=== PATIENT | male | born 1950 | race Caucasian/White ===

== ENCOUNTER 2020-07-23 14:36 | Outpatient (REF) | payer MEDICARE, MEDICAID, SELFPAY ==
[2020-07-23 15:10] LABS: MANUAL DIFF FLAG NO
[2020-07-23 15:13] LABS: Basophils Percent Auto 0.3 % (0-2); Eosinophils Absolute Auto 0.1 X10*3/uL (0.0-0.4); Eosinophils Percent Auto 0.6 % (0-4); Hematocrit 48.8 % (42-52); Imm Gran Abs Auto 0.06 X10*3/uL (0.00-0.03); Imm Gran Pct Auto 0.6 % (0.0-0.4); Lymphocytes Absolute Auto 1.9 X10*3/uL (1.2-4.9); Lymphocytes Percent Auto 17.6 % (20-40); Mean Corpuscular HGB Conc 32.8 g/dl (31.0-36.0); Mean Corpuscular Hemoglobin 29.4 pg (27.0-33.0); Mean Corpuscular Volume 89.5 fL (80-98); Mean Platelet Volume 8.9 fL (9.4-12.4); Monocytes Absolute Auto 0.9 X10*3/uL (0.1-1.2); Monocytes Percent Auto 8.2 % (2-11); Neutrophils Absolute Auto 7.9 X10*3/uL (2.0-8.3); Neutrophils Percent Auto 72.7 % (45-73); Platelet Count 295 X10*3/uL (160-400); Red Blood Count 5.45 X10*6/uL (4.60-5.80); Red Cell Distribution Width 12.9 % (11.0-16.0); White Blood Count 10.9 X10*3/uL (4.8-10.8)
[2020-07-23 15:51] LABS: Alanine Aminotransferase 23 U/L (0-40); Albumin Level 4.6 g/dL (3.5-5.0); Alkaline Phosphatase 76 U/L (39-117); Anion Gap 12 (12-20); Aspartate Amino Transferase 23 U/L (5-37); Bilirubin Total 0.6 mg/dL (0.0-1.0); Blood Urea Nitrogen 18 mg/dL (9-16); Calcium 9.6 mg/dL (8.4-10.2); Carbon Dioxide 32 mmol/L (22-29); Chloride 99 mmol/L (96-108); Estimated Glomerular Filt Rate 59; Glucose Random 96 mg/dL (60-115); Potassium 4.6 mmol/l (3.3-5.1); Sodium 138 mmol/L (135-145); Total Protein 7.7 g/dL (6.5-8.0)
== END 2020-07-23 14:37 | disposition home or self-care (01) ==
LOC: HO.LAB 14:36
PROVIDERS: PCP Family Medicine; Visit Provider Family Medicine
DX: C67.9 Malignant neoplasm of bladder, unspecified (principal); R53.1 Weakness; K50.90 Crohn's disease, unspecified, without complications; M48.02 Spinal stenosis, cervical region; M47.12 Other spondylosis with myelopathy, cervical region; M50.30 Other cervical disc degeneration, unspecified cervical region; Z93.2 Ileostomy status; T81.89XD Other complications of procedures, not elsewhere classified, subsequent encounter; M54.5 Low back pain; G61.81 Chronic inflammatory demyelinating polyneuritis; G89.4 Chronic pain syndrome; Z79.891 Long term (current) use of opiate analgesic
CPT/HCPCS: 36415; 80053; 85025; 99202

== ENCOUNTER → 2020-07-31 10:02 | Outpatient (BNVA) | payer MEDICARE, MEDICAID, SELFPAY | PROVIDERS: PCP Family Medicine; Visit Provider Surgery | DX: K94.03 Colostomy malfunction (principal); Z87.19 Personal history of other diseases of the digestive system | CPT/HCPCS: 99202 ==

== ENCOUNTER 2020-08-24 13:14 | Outpatient (REF) | payer MEDICARE, MEDICAID, SELFPAY ==
--- NOTE | 2020-08-24 15:38 | MHC.AU.P13 ---
Adult Audiological Evaluation Date of Visit: 08/24/20 Reason for Appointment: History of bilateral hearing loss, slightly worse in the left ear. Patient arrives today to determine if he has had a change in hearing. Since his last audiological evaluation, patient has been treated for bladder cancer and is now in remission. A chemotherapy agent was administered directly into his bladder, rather than systemically. Previous Hearing Test Results: At this clinic on 07/04/2019- Normal/borderline sloping to severe sensorineural hearing loss bilaterally Ear History: Recent Ear Drainage: None Reported Recent Ear Pain: None Reported Previous Ear Surgery: None Reported Medical History: Medical History: Crohn's Disease, Bladder Cancer, Arthritis Hearing Instrument History- Right Ear: Immigration Officer: Strikeface Model: [employer] B50-R Serial Number: [id number] Battery Size: Rechargeable Repair Warranty: 09/17/2018 Loss and Damage Warranty: 09/17/2018 Dispensed By: [facility] Date of Fittin07/11/2016 Hearing Instrument History- Left Ear: Immigration Officer: Strikeface Model: DigibooeAnimoca B50-R Serial Number: [id number] Battery Size: Rechargeable Warranty: 09/17/2018 Loss and Damage Warranty: 09/17/2018 Dispensed By: [facility] Date of Fittin07/11/2016 Otoscopy: Right Ear: Unremarkable Left Ear: Partially occluded with cerumen Tympanometry: Right Ear: Normal Middle Ear System (Type A) Left Ear: Normal Middle Ear System (Type A) Hearing Evaluation: Transducer(s) Used: Insert Earphones Method: Conventional Audiometry Stimuli Used: Pure Tones Right Ear: Description of Hearing: Borderline-normal sloping to moderately-severe sensorineural hearing loss Left Ear: Description of Hearing: Borderline-normal sloping to moderately-severe/severe sensorineural hearing loss Speech Recognition Threshold (SRT): Method Used: Recorded Lists Stimuli Used: Spondee Words Right Ear: 30 dBHL Left Ear: 30 dBHL Word Discrimination: Method: Recorded Lists Word Lists Used: NU-6 Right Ear: 92% at 70 dBHL Left Ear: 100% at 75 dBHL Most Comfortable Level (MCL): Right Ear: 70 dBHL Left Ear: 75 dBHL Comparison: Compared to the most recent evaluation: Thresholds have decreased bilaterally. Recommendations: Audiological re-evaluation in one year. Hearing aid maintenance performed today. Hearing aid(s) reprogrammed with updated test results. Diagnosis: Primary Diagnosis: H90.3 Bilateral Sensorineural Hearing Loss Services Performed: Services Performed: Comprehensive Audiological Evaluation (CPT 70594), Tympanometry (CPT 02872) Signature: Provider: Layla Sky, MONICA-A
== END 2020-08-24 13:15 | disposition home or self-care (01) ==
LOC: HO.SH 13:14
PROVIDERS: Visit Provider Family Medicine
DX: H90.3 Sensorineural hearing loss, bilateral (principal)
CPT/HCPCS: 92557; 92567; 92593

== ENCOUNTER → 2020-08-28 11:30 | Outpatient (BNVA) | payer MEDICARE, MEDICAID, SELFPAY | PROVIDERS: PCP Family Medicine; Visit Provider Surgery | DX: K46.9 Unspecified abdominal hernia without obstruction or gangrene (principal) | CPT/HCPCS: 99212 ==

== ENCOUNTER → 2020-09-05 09:55 | Outpatient (BNVA) | payer MEDICARE, MEDICAID, SELFPAY | PROVIDERS: PCP Family Medicine; Visit Provider Nurse Practitioner Family | DX: M47.12 Other spondylosis with myelopathy, cervical region (principal); G89.4 Chronic pain syndrome; C67.9 Malignant neoplasm of bladder, unspecified; Z79.899 Other long term (current) drug therapy | CPT/HCPCS: 99212 ==

== ENCOUNTER → 2020-09-10 10:07 | Outpatient (BNVA) | payer MEDICARE, MEDICAID, SELFPAY | PROVIDERS: PCP Family Medicine; Visit Provider Surgery | DX: K94.19 Other complications of enterostomy (principal) | CPT/HCPCS: 99212 ==

== ENCOUNTER → 2020-10-03 10:58 | Outpatient (BNVA) | payer MEDICARE, MEDICAID, SELFPAY | PROVIDERS: PCP Family Medicine; Visit Provider Nurse Practitioner Family | DX: M47.12 Other spondylosis with myelopathy, cervical region (principal); G89.4 Chronic pain syndrome; C67.9 Malignant neoplasm of bladder, unspecified; Z79.899 Other long term (current) drug therapy | CPT/HCPCS: 99212 ==

== ENCOUNTER → 2020-11-02 10:24 | Outpatient (BNVA) | payer MEDICARE, MEDICAID, SELFPAY | PROVIDERS: PCP Family Medicine; Visit Provider Nurse Practitioner Family | DX: M47.12 Other spondylosis with myelopathy, cervical region (principal); G89.4 Chronic pain syndrome; C67.9 Malignant neoplasm of bladder, unspecified | CPT/HCPCS: 99212 ==

== ENCOUNTER 2020-11-05 09:57 | Outpatient (REF) | payer MEDICARE, MEDICAID, SELFPAY | END 2020-11-05 09:58 | disposition home or self-care (01) | LOC: HO.LAB 09:57 | PROVIDERS: PCP Family Medicine; Visit Provider Surgery | DX: L92.9 Granulomatous disorder of the skin and subcutaneous tissue, unspecified (principal); C67.9 Malignant neoplasm of bladder, unspecified; K50.90 Crohn's disease, unspecified, without complications; Z88.8 Allergy status to other drugs, medicaments and biological substances; Z93.2 Ileostomy status; Z96.643 Presence of artificial hip joint, bilateral; Z96.653 Presence of artificial knee joint, bilateral; Z79.52 Long term (current) use of systemic steroids; Z79.891 Long term (current) use of opiate analgesic; Z79.899 Other long term (current) drug therapy | CPT/HCPCS: 88304; 88312; 99212 ==

== ENCOUNTER → 2020-11-30 10:00 | Outpatient (BNVA) | payer MEDICARE, MEDICAID, SELFPAY | PROVIDERS: PCP Family Medicine; Visit Provider Nurse Practitioner Family | DX: G89.4 Chronic pain syndrome (principal); M47.12 Other spondylosis with myelopathy, cervical region; C67.9 Malignant neoplasm of bladder, unspecified; Z79.899 Other long term (current) drug therapy | CPT/HCPCS: 99212 ==

== ENCOUNTER 2020-12-04 15:12 | Outpatient (REF) | payer MEDICARE, MEDICAID, SELFPAY ==
--- NOTE | ~2020-12-04 | XR_ITS ---
EXAMINATION: XR SHOULDER, RIGHT CLINICAL INFORMATION: Pain COMPARISON: None TECHNIQUE: Three views of the right shoulder. FINDINGS: Bone alignment is normal. No fracture or dislocation is seen. There postsurgical changes with a surgical anchor projecting over the humeral head. There is arthritis at the glenohumeral and acromioclavicular joints with joint space narrowing and osteophyte formation. Soft tissues are unremarkable XR/XR shoulder RT min 2V IMPRESSION: Postsurgical change. Arthritis of the glenohumeral and acromioclavicular joints.
== END 2020-12-04 15:13 | disposition home or self-care (01) ==
LOC: HO.HOSX 15:12
PROVIDERS: Visit Provider Orthopaedic Surgery
DX: M25.511 Pain in right shoulder (principal)
CPT/HCPCS: 73030

== ENCOUNTER → 2020-12-05 08:35 | Outpatient (BNVA) | payer MEDICARE, MEDICAID, SELFPAY | PROVIDERS: Visit Provider Orthopaedic Surgery | DX: M25.511 Pain in right shoulder (principal) | CPT/HCPCS: 20610; 99212; J1040 ==

== ENCOUNTER → 2020-12-24 11:36 | Outpatient (BNVA) | payer MEDICARE, MEDICAID, SELFPAY | PROVIDERS: PCP Family Medicine; Visit Provider Anesthesiology | DX: M47.12 Other spondylosis with myelopathy, cervical region (principal); C67.9 Malignant neoplasm of bladder, unspecified; G89.4 Chronic pain syndrome | CPT/HCPCS: 99212 ==

== ENCOUNTER → 2021-01-02 10:26 | Outpatient (BNVA) | payer MEDICARE, MEDICAID, SELFPAY | PROVIDERS: PCP Family Medicine; Referring Provider Family Medicine; Visit Provider Surgery | DX: L92.9 Granulomatous disorder of the skin and subcutaneous tissue, unspecified (principal); T81.89XD Other complications of procedures, not elsewhere classified, subsequent encounter | CPT/HCPCS: 99212 ==

== ENCOUNTER 2021-01-10 10:00 | Outpatient (RCR) | payer MEDICARE, MEDICAID, SELFPAY | END 2021-08-19 09:17 | disposition home or self-care (01) | LOC: HO.PTWFD 10:00 | PROVIDERS: PCP Family Medicine; Visit Provider Anesthesiology | DX: G89.4 Chronic pain syndrome (principal) | CPT/HCPCS: 97110; 97112; 97150; 97162; 97164; 97530 ==

== ENCOUNTER → 2021-01-23 10:51 | Outpatient (BNVA) | payer MEDICARE, MEDICAID, SELFPAY | PROVIDERS: PCP Family Medicine; Visit Provider Anesthesiology | DX: M47.12 Other spondylosis with myelopathy, cervical region (principal); C67.9 Malignant neoplasm of bladder, unspecified; G89.4 Chronic pain syndrome | CPT/HCPCS: 99212 ==

== ENCOUNTER 2021-02-12 07:13 | Outpatient (REF) | payer MEDICARE, MEDICAID, SELFPAY ==
--- NOTE | 2021-02-12 07:29 | ECG_ITS ---
Test Reason : HTN PREOP Blood Pressure : / mmHG Vent. Rate : 082 BPM Atrial Rate : 082 BPM P-R Int : 146 ms QRS Dur : 096 ms QT Int : 352 ms P-R-T Axes : 066 070 051 degrees QTc Int : 411 ms Normal sinus rhythm Normal ECG When compared with ECG of 28-MAY-2017 11:36, No significant change was found Referred By: Hood Allison Electronically Signed By:Amrik Bennett
[2021-02-12 07:30] LABS: MANUAL DIFF FLAG NO
[2021-02-12 07:32] LABS: Basophils Absolute Auto 0.1 X10*3/uL (0.0-0.2); Basophils Percent Auto 0.6 % (0-2); Eosinophils Absolute Auto 0.3 X10*3/uL (0.0-0.4); Eosinophils Percent Auto 2.3 % (0-4); Hematocrit 49.2 % (42-52); Hemoglobin 16.2 g/dl (14.0-18.0); Imm Gran Pct Auto 0.9 % (0.0-0.4); Lymphocytes Absolute Auto 2.9 X10*3/uL (1.2-4.9); Lymphocytes Percent Auto 26.2 % (20-40); Mean Corpuscular HGB Conc 32.9 g/dl (31.0-36.0); Mean Corpuscular Hemoglobin 29.7 pg (27.0-33.0); Mean Corpuscular Volume 90.3 fL (80-98); Monocytes Absolute Auto 1.2 X10*3/uL (0.1-1.2); Monocytes Percent Auto 10.6 % (2-11); Neutrophils Absolute Auto 6.5 X10*3/uL (2.0-8.3); Neutrophils Percent Auto 59.4 % (45-73); Platelet Count 291 X10*3/uL (160-400); Red Blood Count 5.45 X10*6/uL (4.60-5.80); Red Cell Distribution Width 13.1 % (11.0-16.0); White Blood Count 10.9 X10*3/uL (4.8-10.8)
[2021-02-12 07:40] LABS: Estimated Average Glucose 108 mg/dL; Hemoglobin A1C 150.5761 umol/L; Hemoglobin A1c % 5.4 %
[2021-02-12 07:56] LABS: Alanine Aminotransferase 23 U/L (0-40); Albumin Level 4.4 g/dL (3.5-5.0); Alkaline Phosphatase 75 U/L (39-117); Anion Gap 13 (12-20); Aspartate Amino Transferase 22 U/L (5-37); Bilirubin Total 0.6 mg/dL (0.0-1.0); Blood Urea Nitrogen 13 mg/dL (9-16); Calcium 9.6 mg/dL (8.4-10.2); Carbon Dioxide 29 mmol/L (22-29); Chloride 103 mmol/L (96-108); Estimated Glomerular Filt Rate 56; Glucose Fasting 101 mg/dL (60-99); Potassium 4.5 mmol/L (3.3-5.1); Sodium 140 mmol/L (135-145); Total Protein 7.4 g/dL (6.5-8.0)
== END 2021-02-12 07:14 | disposition home or self-care (01) ==
LOC: HO.LAB 07:13
PROVIDERS: PCP Family Medicine; Visit Provider Family Medicine
DX: Z01.818 Encounter for other preprocedural examination (principal); K50.90 Crohn's disease, unspecified, without complications; I10 Essential (primary) hypertension
CPT/HCPCS: 36415; 80053; 83036; 85025; 93005

== ENCOUNTER → 2021-02-28 11:12 | Outpatient (BNVA) | payer MEDICARE, MEDICAID, SELFPAY | PROVIDERS: PCP Family Medicine; Visit Provider Anesthesiology | DX: G89.4 Chronic pain syndrome (principal); M47.12 Other spondylosis with myelopathy, cervical region; C67.9 Malignant neoplasm of bladder, unspecified; R39.15 Urgency of urination; K50.90 Crohn's disease, unspecified, without complications; Z92.21 Personal history of antineoplastic chemotherapy; Z43.2 Encounter for attention to ileostomy; Z88.8 Allergy status to other drugs, medicaments and biological substances | CPT/HCPCS: 99212 ==

== ENCOUNTER → 2021-03-28 10:13 | Outpatient (BNVA) | payer MEDICARE, MEDICAID, SELFPAY | PROVIDERS: PCP Family Medicine; Visit Provider Anesthesiology | DX: G89.4 Chronic pain syndrome (principal); M47.12 Other spondylosis with myelopathy, cervical region; C67.9 Malignant neoplasm of bladder, unspecified; Z79.899 Other long term (current) drug therapy | CPT/HCPCS: 99212 ==

== ENCOUNTER → 2021-04-24 10:00 | Outpatient (BNVA) | payer MEDICARE, MEDICAID, SELFPAY | PROVIDERS: Visit Provider Nurse Practitioner Family | DX: Z51.81 Encounter for therapeutic drug level monitoring (principal); M47.12 Other spondylosis with myelopathy, cervical region; C67.9 Malignant neoplasm of bladder, unspecified; G89.4 Chronic pain syndrome | CPT/HCPCS: 99212 ==

== ENCOUNTER 2021-05-22 10:11 | Outpatient (REF) | payer MEDICARE, MEDICAID, SELFPAY ==
[2021-05-22 11:27] LABS: MANUAL DIFF FLAG NO
[2021-05-22 11:50] LABS: Basophils Percent Auto 0.3 % (0-2); Eosinophils Absolute Auto 0.2 X10*3/uL (0.0-0.4); Eosinophils Percent Auto 1.9 % (0-4); Hematocrit 47.2 % (42-52); Hemoglobin 15.6 g/dl (14.0-18.0); Imm Gran Abs Auto 0.04 X10*3/uL (0.00-0.03); Imm Gran Pct Auto 0.5 % (0.0-0.4); Lymphocytes Absolute Auto 1.7 X10*3/uL (1.2-4.9); Lymphocytes Percent Auto 19.3 % (20-40); Mean Corpuscular HGB Conc 33.1 g/dl (31.0-36.0); Mean Corpuscular Hemoglobin 29.1 pg (27.0-33.0); Mean Corpuscular Volume 87.9 fL (80-98); Mean Platelet Volume 9.3 fL (9.4-12.4); Monocytes Percent Auto 11.4 % (2-11); Neutrophils Absolute Auto 5.9 X10*3/uL (2.0-8.3); Neutrophils Percent Auto 66.6 % (45-73); Platelet Count 283 X10*3/uL (160-400); Red Blood Count 5.37 X10*6/uL (4.60-5.80); Red Cell Distribution Width 13.1 % (11.0-16.0); White Blood Count 8.8 X10*3/uL (4.8-10.8)
== END 2021-05-22 10:12 | disposition home or self-care (01) ==
LOC: HO.LAB 10:11
PROVIDERS: Absent Provider Family Medicine; PCP Family Medicine; Visit Provider Anesthesiology
DX: G89.4 Chronic pain syndrome (principal); M47.12 Other spondylosis with myelopathy, cervical region; C67.9 Malignant neoplasm of bladder, unspecified; D64.9 Anemia, unspecified
CPT/HCPCS: 36415; 85025; 99212

== ENCOUNTER 2021-06-11 11:00 | Outpatient (RCR) | payer MEDICARE, MEDICAID, SELFPAY | END 2021-06-14 12:37 | disposition home or self-care (01) | LOC: HO.PTWFD 11:00 | PROVIDERS: PCP Family Medicine; Visit Provider Neurological Surgery | DX: M54.12 Radiculopathy, cervical region (principal) | CPT/HCPCS: 97014; 97110; 97140; 97162; 97535 ==

== ENCOUNTER 2021-06-13 11:18 | Outpatient (REF) | payer MEDICARE, MEDICAID, SELFPAY ==
[2021-06-13 16:55] LABS: Urine Cytology See Pathology rpt
== END 2021-06-13 11:19 | disposition home or self-care (01) ==
LOC: HO.LAB 11:18
PROVIDERS: PCP Family Medicine; Visit Provider Urology
DX: C67.9 Malignant neoplasm of bladder, unspecified (principal); E29.1 Testicular hypofunction; N40.0 Benign prostatic hyperplasia without lower urinary tract symptoms
CPT/HCPCS: 51798; 88112; 99212

== ENCOUNTER → 2021-06-17 10:15 | Outpatient (BNVA) | payer MEDICARE, MEDICAID, SELFPAY | PROVIDERS: PCP Family Medicine; Visit Provider Orthopaedic Surgery | DX: M19.011 Primary osteoarthritis, right shoulder (principal); M75.102 Unspecified rotator cuff tear or rupture of left shoulder, not specified as traumatic | CPT/HCPCS: 20610; 99212; J1100 ==

== ENCOUNTER → 2021-06-19 11:08 | Outpatient (BNVA) | payer MEDICARE, MEDICAID, SELFPAY | PROVIDERS: PCP Family Medicine; Visit Provider Anesthesiology | DX: G89.4 Chronic pain syndrome (principal); M47.12 Other spondylosis with myelopathy, cervical region; C67.9 Malignant neoplasm of bladder, unspecified; Z88.1 Allergy status to other antibiotic agents; Z88.8 Allergy status to other drugs, medicaments and biological substances; Z79.891 Long term (current) use of opiate analgesic; Z79.52 Long term (current) use of systemic steroids; Z79.899 Other long term (current) drug therapy | CPT/HCPCS: 99212 ==

== ENCOUNTER → 2021-07-17 15:07 | Outpatient (BNVA) | payer MEDICARE, MEDICAID, SELFPAY | PROVIDERS: PCP Family Medicine; Visit Provider Anesthesiology | DX: Z51.81 Encounter for therapeutic drug level monitoring (principal); F11.20 Opioid dependence, uncomplicated; M47.12 Other spondylosis with myelopathy, cervical region; G89.4 Chronic pain syndrome; C67.9 Malignant neoplasm of bladder, unspecified | CPT/HCPCS: 99212 ==

== ENCOUNTER 2021-08-21 16:07 | Outpatient (REF) | payer MEDICARE, MEDICAID, SELFPAY ==
[2021-08-21 17:07] LABS: MANUAL DIFF FLAG NO
[2021-08-21 17:27] LABS: Basophils Percent Auto 0.2 % (0-2); Eosinophils Absolute Auto 0.1 X10*3/uL (0.0-0.4); Eosinophils Percent Auto 1.5 % (0-4); Hemoglobin 15.5 g/dl (14.0-18.0); Imm Gran Abs Auto 0.02 X10*3/uL (0.00-0.03); Imm Gran Pct Auto 0.3 % (0.0-0.4); Lymphocytes Absolute Auto 1.5 X10*3/uL (1.2-4.9); Lymphocytes Percent Auto 25.4 % (20-40); Mean Corpuscular HGB Conc 32.3 g/dl (31.0-36.0); Mean Corpuscular Hemoglobin 28.2 pg (27.0-33.0); Mean Corpuscular Volume 87.4 fL (80.0-98.0); Mean Platelet Volume 9.5 fL (9.4-12.4); Monocytes Absolute Auto 0.7 X10*3/uL (0.1-1.2); Monocytes Percent Auto 11.4 % (2-11); Neutrophils Absolute Auto 3.6 x10*3/uL (2.0-8.3); Neutrophils Percent Auto 61.2 % (45-73); Platelet Count 233 X10*3/uL (160-400); Red Blood Count 5.49 X10*6/uL (4.60-5.80); Red Cell Distribution Width 13.1 % (11.0-16.0); White Blood Count 5.9 X10*3/uL (4.8-10.8)
[2021-08-21 17:54] LABS: C Reactive Protein 0.45 mg/dL (< or = 0.50)
[2021-08-21 18:08] LABS: Erythrocyte Sedimentation Rate 8 MM/HR (0-15)
[2021-08-21 18:16] LABS: Ferritin 169 ng/mL (20-250)
[2021-08-23 13:37] LABS: Beta-2 Microglobulin, Serum 4.16 mg/L (< OR = 2.51)
== END 2021-08-21 16:08 | disposition home or self-care (01) ==
LOC: HO.LAB 16:07
PROVIDERS: Absent Provider Family Medicine; PCP Family Medicine; Visit Provider Anesthesiology
DX: R53.83 Other fatigue (principal); G89.4 Chronic pain syndrome; M47.12 Other spondylosis with myelopathy, cervical region; C67.9 Malignant neoplasm of bladder, unspecified; D58.2 Other hemoglobinopathies; D84.9 Immunodeficiency, unspecified
CPT/HCPCS: 36415; 81219; 81270; 81279; 81339; 82232; 82728; 85025; 85652; 86140; 88184; 88185; 99212

== ENCOUNTER 2021-08-29 13:40 | Outpatient (REF) | payer MEDICARE, MEDICAID, SELFPAY ==
--- NOTE | 2021-08-30 08:34 | MHC.AU.MED ---
Medical Clearance for Hearing Instrumentation Date: 08/30/21 Patient Name: Landon Bourgeois Date of : 1950 Referring Provider: Hood Allison MD We have seen your patient on 08/29/21 and have determined that they are a candidate for amplification (See accompanying report). Specifically, they would benefit from: Hearing aid use in both ears There is a statute that addresses Medical Evaluation Requirements prior to fitting a patient with a hearing aid. According to [place] statute [facility] CMR:6.03(1), (a) General. Except as provided in 265 CMR 6.03(1)(b), a shearing machine tender shall not sell a hearing aid unless the prospective user has presented to the shearing machine tender a written statement signed by a licensed physician that states that the patient's hearing loss has been medically evaluated and the patient may be considered a candidate for a hearing aid. The medical evaluation must have taken place within the preceding six months. Please note: Due to the [place] Statute referenced above, we cannot accept a signature other than that of a licensed physician. MACHINE BUILDER and PA signatures cannot be accepted. I am in agreement with the above recommendation. There is no medical contraindication for hearing instrumentation. Physician Signature Date Physician Name (Printed)
--- NOTE | 2021-08-30 08:35 | MHC.AU.HAS ---
Hearing Aid Evaluation Date of Visit: 08/29/21 Historical Information: Description of Hearing: Borderline/mild sloping to moderately-severe sensorineural hearing loss bilaterally Current personal amplification information, if applicable: Pair of Phonak Audeo B50-R, obtained on07/11/2016 Summary: Patient was seen for audiological evaluation (see separate report for details). Hearing aid options were discussed. When shown the different styles, patient was briefly considering a custom for ease of use and to free up space behind his ears, as he also wears glasses. He ultimately decided it would be best to stick with what has worked well for him in the past, a HAMLET with custom molds. Hearing Aid Prescription: Based on the individual?s shared listening needs, communication environments, dexterity, desire for connectivity, and personal preferences, the following prescription for amplification has been made: Right ear: Director Translation: [employer] Model: Audeo B50-R Battery Size: Rechargeable Color: Sand Beige Motel Clerk: 2M Type of Mold: Microsonic Canal Molds in Idagf-a-Sway InvisiEar Left ear: Left ear prescription to be same as Right Hearing Aid above: Director Translation: Phonak Model: Audeo B50-R Battery Size: Rechargeable Color: Sand Beige Motel Clerk: 2M Type of Mold: Microsonic Canal Molds in Lznck-d-Fcjh InvisiEar Action Taken/Action Needed: Earmold Impressions Taken Medical Clearance to be requested from PCP/ENT Hearing Instrument Fitting to be scheduled when materials arrive Primary Diagnosis: H90.3 Bilateral Sensorineural Hearing Loss Signature: Provider: Layla Sky, MONICA-A
--- NOTE | 2021-08-30 08:35 | MHC.AU.AHA ---
Adult Audiological Evaluation Date of Visit: 08/29/21 Reason for Appointment: History of hearing loss. Patient arrives to determine if there has been a change in hearing. Previous Hearing Test Results: At this clinic on08/24/2020- Borderline sloping to moderately-severe sensorineural hearing loss bilaterally Ear History: Recent Ear Drainage: None Reported Recent Ear Pain: None Reported Recent Ear Infections: None Reported History of Ear Wax Buildup: Both Ears Previous Ear Surgery: None Reported Medical History: Medical History: Crohn's Disease, Bladder Cancer (treated with chemotherapy administered directly into the bladder, not systemically), Arthritis Hearing Instrument History- Right Ear: Flight Technician: [employer] Model: [employer] B50-R Serial Number: [id number] Battery Size: Rechargeable Repair Warranty: 09/17/2018 Loss and Damage Warranty: 09/17/2018 Dispensed By: [facility] Date of Fittin07/11/2016 Hearing Instrument History- Left Ear: Flight Technician: [employer] Market Model: [employer] B50-R Serial Number: [id number] Battery Size: Rechargeable Warranty: 09/17/2018 Loss and Damage Warranty: 09/17/2018 Dispensed By: [facility] Date of Fittin07/11/2016 Otoscopy: Right Ear: Partially occluded- Cerumen was removed prior to testing Left Ear: Partially occluded- Cerumen was removed prior to testing Hearing Evaluation: Transducer(s) Used: Insert Earphones Method: Conventional Audiometry Stimuli Used: Pure Tones Right Ear: Description of Hearing: Borderline sloping to moderately-severe sensorineural hearing loss Left Ear: Description of Hearing: Borderline/mild sloping to moderately-severe sensorineural hearing loss Speech Recognition Threshold (SRT): Method Used: Recorded Lists Stimuli Used: Spondee Words Right Ear: 20 dBHL Left Ear: 30 dBHL Word Discrimination: Method: Recorded Lists Word Lists Used: W-22 Right Ear: 100% at 70 dBHL Left Ear: 96% at 75 dBHL Most Comfortable Level (MCL): Right Ear: 70 dBHL Left Ear: 75 dBHL Comparison: Compared to most recent evaluation: Slight decrease noted in high frequencies of left ear Recommendations: Audiological re-evaluation in one year. See Hearing Aid Evaluation report for more information. Diagnosis: Primary Diagnosis: H90.3 Bilateral Sensorineural Hearing Loss Services Performed: Comprehensive Audiological Evaluation (CPT 04925) Signature: Provider: Layla Sky, CCC-A
--- NOTE | 2021-09-02 08:26 | MHC.AU.HAS ---
Hearing Aid Evaluation Date of Visit: 08/29/21 Historical Information: Description of Hearing: Borderline/mild sloping to moderately-severe sensorineural hearing loss bilaterally Current personal amplification information, if applicable: Pair of Phonak Audeo B50-R, obtained on07/11/2016 Summary: Patient was seen for audiological evaluation (see separate report for details). Hearing aid options were discussed. When shown the different styles, patient was briefly considering a custom for ease of use and to free up space behind his ears, as he also wears glasses. He ultimately decided it would be best to stick with what has worked well for him in the past, a HAMLET with custom molds. Hearing Aid Prescription: Based on the individual?s shared listening needs, communication environments, dexterity, desire for connectivity, and personal preferences, the following prescription for amplification has been made: Right ear: Glass Embosser: PhonGazelle Model: Audeo P70-R Battery Size: Rechargeable Color: Sand Beige Clam Dredger: 1M Type of Mold: SlimTip Silicone w/canal lock Left ear: Glass Embosser: Phonak Model: Audeo P70-R Battery Size: Rechargeable Color: Sand Beige Clam Dredger: 1M Type of Mold: SlimTip Silicone w/canal lock Action Taken/Action Needed: Earmold Impressions Taken Medical Clearance to be requested from PCP/ENT Hearing Instrument Fitting to be scheduled when materials arrive Primary Diagnosis: H90.3 Bilateral Sensorineural Hearing Loss Signature: Provider: Layla Sky, MONICA-A
== END 2021-08-29 13:41 | disposition home or self-care (01) ==
LOC: HO.SH 13:40
PROVIDERS: Visit Provider Family Medicine
DX: Z46.1 Encounter for fitting and adjustment of hearing aid (principal); H90.3 Sensorineural hearing loss, bilateral
CPT/HCPCS: 92557; 92591; V5275

== ENCOUNTER 2021-09-09 10:24 | Outpatient (REF) | payer MEDICARE, MEDICAID, SELFPAY ==
--- NOTE | ~2021-09-09 | XR_ITS ---
EXAMINATION: XR SHOULDER, LEFT CLINICAL INFORMATION: Pain in left shoulder COMPARISON: None TECHNIQUE: There are 3 views of the left shoulder. FINDINGS: Acromioclavicular joint: Mild osteoarthritis with small marginal osteophytes and some calcification in the region of the capsule. Glenohumeral joint: Normal. Surrounding bone and soft tissues: Unremarkable. XR/XR shoulder LT min 2V IMPRESSION: Degenerative changes of the acromioclavicular joint.
== END 2021-09-09 10:25 | disposition home or self-care (01) ==
LOC: HO.HOSX 10:24
PROVIDERS: PCP Family Medicine; Visit Provider Orthopaedic Surgery
DX: M75.102 Unspecified rotator cuff tear or rupture of left shoulder, not specified as traumatic (principal); M19.011 Primary osteoarthritis, right shoulder
CPT/HCPCS: 20610; 73030; 99212; J1100

== ENCOUNTER 2021-09-18 10:28 | Outpatient (REF) | payer MEDICARE, MEDICAID, SELFPAY ==
[2021-09-18 16:13] LABS: C Reactive Protein 0.69 mg/dL (< or = 0.50)
[2021-09-18 16:35] LABS: Vitamin D 25-OH Total 28.3 ng/mL (>30)
[2021-09-18 16:51] LABS: Vitamin B12 685 pg/mL (200-900)
[2021-10-03 21:22] LABS: Adalimumab Drug Level 8.3 mcg/mL; Anti-Adalimumab Antibody <10 AU (<10)
== END 2021-09-18 10:29 | disposition home or self-care (01) ==
LOC: HO.LAB 10:28
PROVIDERS: Absent Provider Family Medicine; PCP Family Medicine; Referring Provider Internal Medicine Gastroenterology; Visit Provider Surgery
DX: K50.90 Crohn's disease, unspecified, without complications (principal); Z93.2 Ileostomy status; Z79.899 Other long term (current) drug therapy
CPT/HCPCS: 36415; 80145; 82306; 82607; 83520; 86140; 99211; 99212

== ENCOUNTER 2021-09-20 13:40 | Outpatient (REF) | payer MEDICARE, MEDICAID, SELFPAY ==
--- NOTE | 2021-10-02 12:40 | MHC.AU.HFA ---
Hearing Instrument Fitting- Adult- Binaural Date of Visit: 09/20/21 Hearing Instruments Dispensed: Right Ear: Gift Shop Manager: Phonak Model: Audeo P70-R Serial Number: [id number] Repair Warranty: 12/11/2024 Loss and Damage Warranty: 12/11/2024 Service Plan: 09/20/2022 Battery Size: Rechargeable Color: Sand Beige Quantitative Developer: 1M Type of Mold: SlimTip Silicone w/canal lock #[id number] Type of Wax Guard: CeruShield Left Ear: Gift Shop Manager: Phonak Model: Audeo P70-R Serial Number: [id number] Repair Warranty: 12/11/2024 Loss and Damage Warranty: 12/11/2024 Service Plan: 09/20/2022 Battery Size: Rechargeable Color: Sand Beige Quantitative Developer: 1M Type of Mold: SlimTip Silicone w/canal lock #[id number] Type of Wax Guard: CeruShield Summary of Fitting: Feedback banking manager run. Verifit performed and levels adjusted to better reach targets. Target gain set to 100%. Patient was pleased with the sound and comfort of the hearing aids. He reports they sound markedly better than his old ones. Hearing aid care and maintenance were discussed and practiced. Hearing aids were paired to his phone and murphy. Recommendations: Recommendations: Patient is an experienced hearing aid user. He will call for follow-up if needed. Diagnosis Code(s): Primary Diagnosis: H90.3 Bilateral Sensorineural Hearing Loss Signature: Provider: Layla Sky, MONICA-A
== END 2021-09-20 13:41 | disposition home or self-care (01) ==
LOC: HO.HAP 13:40
PROVIDERS: Visit Provider Family Medicine
DX: Z46.1 Encounter for fitting and adjustment of hearing aid (principal); H90.3 Sensorineural hearing loss, bilateral
CPT/HCPCS: V5011; V5020; V5160; V5261; V5264

== ENCOUNTER → 2021-10-16 15:17 | Outpatient (BNVA) | payer MEDICARE, MEDICAID, SELFPAY | PROVIDERS: PCP Family Medicine; Visit Provider Anesthesiology | DX: Z51.81 Encounter for therapeutic drug level monitoring (principal); Z88.8 Allergy status to other drugs, medicaments and biological substances; Z79.899 Other long term (current) drug therapy | CPT/HCPCS: 99211 ==

== ENCOUNTER 2021-10-17 11:08 | Outpatient (REF) | payer MEDICARE, MEDICAID, SELFPAY ==
--- NOTE | 2021-10-17 14:20 | MHC.AU.HFU ---
Hearing Instrument Follow-Up- Binaural Date of Visit: 10/17/21 Right Ear: Railroad Crane Operator: Phonak Model: Audeo P70-R Serial Number: [id number] Repair Warranty: 12/11/2024 Loss and Damage Warranty: 12/11/2024 Service Plan: 09/20/2022 Battery Size: Rechargeable Color: Sand Beige Deckhand: 2M Type of Mold: SlimTip Silicone w/canal lock #[id number] Dispensed By: [facility] Date of Fittin07/11/2016 Left Ear: Railroad Crane Operator: Phonak Model: Audeo P70-R Serial Number: [id number] Repair Warranty: 12/11/2024 Loss and Damage Warranty: 12/11/2024 Service Plan: 09/20/2022 Battery Size: Rechargeable Color: Sand Beige Deckhand: 2M Type of Mold: SlimTip Silicone w/canal lock #[id number] Dispensed By: [facility] Date of Fittin07/11/2016 Follow-Up Summary: Patient arrived for follow-up. He would like to try ITCs. He reports that the new hearing aids have been sounding good, but they are difficult for him to put in his ears due to numbness in his fingers. He also thinks the assembler wire group wire needs to be a little longer. Impressions were taken bilaterally without incident. A pair of [email or web address] AI 1600 ITC R will be ordered. Patient will hold onto the Phonak RICs for now- the assembler wire group wire was changed to a size 2M in the meantime, which patient reported felt more comfortable. Recommendations: Patient will be contacted when materials have arrived. Diagnosis Code(s): Primary Diagnosis: H90.3 Bilateral Sensorineural Hearing Loss Signature: Provider: Layla Sky, [facility]
== END 2021-10-17 11:09 | disposition home or self-care (01) ==
LOC: HO.HAP 11:08
PROVIDERS: Visit Provider Family Medicine
DX: Z46.1 Encounter for fitting and adjustment of hearing aid (principal); H90.3 Sensorineural hearing loss, bilateral
CPT/HCPCS: V5275

== ENCOUNTER 2021-11-01 11:00 | Outpatient (REF) | payer MEDICARE, MEDICAID, SELFPAY ==
--- NOTE | 2021-11-01 12:11 | MHC.AU.HFA ---
Hearing Instrument Fitting- Adult- Binaural Date of Visit: 11/01/21 Hearing Instruments Dispensed: Right Ear: Laboratory Chemical Assistant: Coolerado Model: [employer]v AI 1600 ITC-R Serial Number: [id number] Repair Warranty: 11/23/2024 Loss and Damage Warranty: 11/23/2024 Battery Size: Rechargeable Type of Wax Guard: HearClear Left Ear: Laboratory Chemical Assistant: Coolerado Model: Evolv AI 1600 ITC-R Serial Number: [id number] Repair Warranty: 11/23/2024 Loss and Damage Warranty: 11/23/2024 Battery Size: Rechargeable Type of Wax Guard: HearClear Summary of Fitting: Fit the Coolerado ITC-R aids, ran feedback test and performed Real Ear measurements making adjust to better meet targets with aids set at Experience level #3. Activated Frequency Lowering and all features on default. Patient was having trouble using the push button so did not activate volume control. Downloaded [employer] murphy in patient's phone and tried to practice answering phone call, but did not work. Contacted [facility] and spoke with Dilma. Patient's Hydrelis 8 phone is not compatible with aids. Patient decided to delete the murphy. Recommendations: Hearing instrument care and maintenance were discussed and practiced.See handouts for care/use instructions and battery information. Recommendations (Other): Hearing aid follow-up schedule for 11/15/2021. PHONAK AIDS IN REPAIR DRAWER. PATIENT WILL DECIDE WHICH AIDS HE WANTS TO KEEP. Diagnosis Code(s): Primary Diagnosis: H90.3 Bilateral Sensorineural Hearing Loss Signature:Provider: Layla Mooney, [facility]-A
== END 2021-11-01 11:01 | disposition home or self-care (01) ==
LOC: HO.HAP 11:00
PROVIDERS: Visit Provider Family Medicine
DX: Z13.89 Encounter for screening for other disorder (principal)

== ENCOUNTER 2021-11-02 12:35 | Emergency (ER) | payer MEDICARE, MEDICAID, SELFPAY ==
[2021-11-02 12:46] VITALS: BP 114/74; PULSE 89; RESP 20; TEMP 36.4; O2SAT 97; BMI 27.1
--- NOTE | 2021-11-02 13:05 | ED.GENADULT ---
HPI - General Adult General Chief complaint: General Medical Stated complaint: med refill Time Seen by Provider: 11/02/21 12:41 Source: patient Mode of arrival: ambulatory Limitations: no limitations History of Present Illness HPI narrative: 71-year-old male with a history of bladder cancer, chronic pain syndrome on long-term oxycodone 15 mg q.4 hours followed by Pain Management Dr. Raymond here with reports of seeking medication refill. Patient tells me that he is on oxycodone 15 mg q.4 hours and fills his supply monthly at pain management. Last filled 3/3 150mg tablets. Patient tells me due to it being the weekend he was unable to reach out to his pain management doctor for his monthly refill. He will be unable to contact them until Thursday. He is requesting today and tomorrow his dosage to hold him over until Thursday when he can call his pain management doctor. Related Data Home Medications Medication Instructions Recorded Confirmed diphenoxylate-atropine 2.5 2 tab PO TID PRN 07/23/20 10/16/21 mg-0.025 mg tablet gabapentin 600 mg tablet 600 mg PO BEDTIME 07/23/20 10/16/21 chlorzoxazone 500 mg tablet 500 mg PO QID PRN 07/31/20 10/16/21 clonidine HCl 0.2 mg tablet 0.2 mg PO BID 07/31/20 10/16/21 lorazepam 0.5 mg tablet 0.5 mg PO BID PRN 07/31/20 10/16/21 metoprolol succinate 25 mg 25 mg PO BEDTIME 07/31/20 10/16/21 tablet,extended release 24 hr adalimumab 40 mg/0.8 mL See Rx Instructions SUBCUT .COMPLEX 09/05/20 10/16/21 subcutaneous syringe kit (Humira) adalimumab 40 mg/0.4 mL 40 mg SUBCUT Q2W 06/13/21 10/16/21 subcutaneous pen kit (Humira(CF) Pen) prednisone 1 mg tablet 1 mg PO BID 06/13/21 10/16/21 bupropion HCl 150 mg 24 hr tablet, 300 mg PO tab 09/18/21 10/16/21 extended release Previous Rx's Medication Instructions Recorded ostomy supplies #60 g 08/02/20 disposable gloves (Nitrile Exam #4 box 08/09/20 Gloves) ostomy adhesive (Stomahesive Paste) 1 appl MISCELLANEOUS Q OTHER DAY 08/09/20 #1 tube naloxone 4 mg/actuation nasal 4 mg INTRANASAL Q2M #2 ea 10/03/20 spray (Narcan) ring (ostomy supply) 2 #20 ring 12/10/20 disposable gloves #200 ea 12/11/20 ostomy supplies #473 ml 12/11/20 skin protectants, misc. (No Sting See Rx Instructions TOPICAL .w12/11/20 Barrier Film) appliance change #30 ea ostomy supplies (SenSura Flex #30 ea 12/18/20 Ostomy Pouch) ostomy supplies-skin barrier 4 X #20 wafer 12/18/20 4 wafer cyclobenzaprine 5 mg tablet 5 mg PO TID 30 Days #90 tab 08/07/21 testosterone 1 % (50 mg/5 gram) 2 packet TRANSDERMAL DAILY 30 Days 09/12/21 transdermal gel packet #300 g oxycodone 15 mg tablet 15 mg PO Q4H PRN 30 Days #150 tab 10/17/21 MDD 5 pills oxycodone 15 mg tablet 15 mg PO Q4H PRN #8 tab 11/02/21 Allergies Allergy/AdvReac Type Severity Reaction Status Date / Time methotrexate [METHOTREXATE] Allergy Severe ACUTE Verified 10/16/21 16:11 PANCREATITIS ciprofloxacin [Cipro] Allergy Unknown itching Verified 10/16/21 16:11 infliximab [From REMICADE] AdvReac Severe MALAISE,DIZ Verified 10/16/21 16:11 ZY,NAUSEA levofloxacin [From LEVAQUIN] AdvReac Severe PAINS IN Verified 10/16/21 16:11 SIDES OF ABDOMEN thalidomide [THALIDOMIDE] AdvReac Severe MALAISE Verified 10/16/21 16:11 DIZZY,NAUSEA From FLAGYL AdvReac Severe MALAISE,DIZ Uncoded 10/16/21 16:11 ZY,NAUSEA SALICYLATES AdvReac Severe MALAISE,DIZ Uncoded 10/16/21 16:11 ZY,NAUSEOUS Review of Systems Review of Systems: Yes all other systems are reviewed and are negative Constitutional: Constitutional: Reports no additional constitutional complaints, Denies body ache(s), Denies chills, Denies fever(s), Denies headache(s) and Denies weakness Eyes: Eyes: Reports no additional eye complaints and Denies change in vision ENT: Reports system reviewed and no additional complaints, except as documented, Denies dizziness, Denies headache(s), Denies nasal congestion, Denies nasal discharge and Denies neck pain Cardiovascular: Cardiovascular: Reports no additional cardiovascular complaints, Denies chest pain, Denies leg edema and Denies dyspnea Respiratory: Respiratory: Reports no additional respiratory complaints, Denies cough and Denies dyspnea Gastrointestinal: Gastrointestinal: Reports no additional gastrointestinal complaints, Denies abdominal pain, Denies diarrhea, Denies nausea and Denies vomiting Genitourinary: Genitourinary: Denies urinary incontinence Musculoskeletal: Musculoskeletal: Reports no additional musculoskeletal complaints, Denies back pain, Denies arthralgias, Denies joint swelling, Denies neck pain, Denies numbness and Denies tingling Integumentary/Breasts: Skin/Breast: Reports system reviewed and no additional complaints, except as docu and Denies rash Neurologic: Reports system reviewed and no additional complaints, except as documented, Denies dizziness, Denies headache(s), Denies numbness, Denies tingling and Denies weakness PMF Past Medical History Attestation statement: The following information was validated with the patient. Source: old records reviewed and nursing notes reviewed Medical History Bladder cancer Cervical stenosis of spinal canal Chronic pain syndrome Crohn's disease Crohn's disease Degeneration, intervertebral disc, cervical Hypergranulation Ileostomy in place residential (current) use of opiate analgesic Low back pain Peripheral neuropathy Spondylosis of cervical spine with myelopathy Surgical wound granuloma Surgical History History of appendectomy History of colostomy History of excision of mass (05/31/12) History of left hip replacement History of left knee replacement History of resection of stomach History of tonsillectomy and adenoidectomy History of total right hip arthroplasty (06/29/17) History of total right knee replacement Social History Social History Alcohol intake: current Alcohol intake frequency: holidays/special occasions only Advance Directives: Yes Advance Directives Information Provided: Yes Advance Directives on File: No Current occupation: right handed Physical Exam ED Vital Signs: Vital Signs - 24 hr 11/02/21 12:46 Temperature 97.6 F Pulse Rate 89 Respiratory Rate 20 Blood Pressure 114/74 Pulse Oximetry 97 BMI result Body Mass Index 27.1 Const General: cooperative, healthy appearing, comfortable and no acute distress Orientation/consciousness: patient oriented x3 Limitations: no limitations HENMT Head: Yes normal to inspection Ears: hearing grossly normal bilaterally General nose exam: Normal external nose present Face and sinus: Yes normal facial exam Eyes General: appearance normal, both eyes and all related structures Pupils: Equal, round and reactive pupils present Neck Neck: Yes normal visual inspection Chest Chest palpation & inspection: normal inspection of the chest Neuro General: patient oriented x3 Cranial nerves: Yes Equal, round and reactive pupils present Course Course Course Narrative: 71-year-old male here seeking medication refill for his oxycodone which he has been on long-term and is followed by pain management. Patient unable to get his refill as it is the weekend and pain management office is not open. His last refill was October 03 of 150 mg tablets of 15 mg of Oxycodone. I reviewed his [employer] APPRENTICE. Patient has been picking up his monthly prescription with pain management with no additional prescriptions from other providers. He has been going to pain management since 2019 and seems to have a good track record there. I reviewed his notes by pain management. Patient is requesting refill until Thursday when he can call pain management. I explained to the patient we normally do not refill or manage chronic pain in the emergency department. I did discuss with my attending Dr New and as the patient is in good standing with no notes of misuse/abuse or diversion from pain management notes we will give him 8 tablets for the weekend. Recommend patient follow-up with his pain management doctor on Thursday. Medical Decision Making Medical Records Medical records reviewed: Yes I reviewed the patient's medical records. Lab Data Lab results reviewed: Yes I reviewed the patient's lab results. Discharge Plan Discharge Clinical Impression: Medication refill Patient Disposition: Home, Self-Care Instructions: Medicine Refill (ED) Additional Instructions: We have given you a small supply until thursday morning Prescriptions: New oxycodone 15 mg tablet 15 mg PO Q4H PRN (Reason: pain) Qty: 8 0RF No Action Stomahesive Paste Paste 1 appl miscellaneous Q OTHER DAY Qty: 1 11RF Rx Instructions: Quanty 4 oz per month, refill x 11 (DME) disposable gloves [Nitrile Exam Gloves] Misc See Rx Instructions .ROUTE .MEDSUPPLY Qty: 4 11RF Rx Instructions: As directed (DME) ring (ostomy supply) 2 misc See Rx Instructions .ROUTE .MEDSUPPLY Qty: 20 3RF Rx Instructions: Merna 30mm ring No Sting Barrier Film Pads, Medicated See Rx Instructions topical .w/ appliance change Qty: 30 11RF Rx Instructions: 1 pad topical .w/ appliance change; (DME) ostomy supplies Liquid See Rx Instructions .ROUTE .MEDSUPPLY Qty: 473 0RF Rx Instructions: As directed (DME) disposable gloves Misc See Rx Instructions .ROUTE .MEDSUPPLY Qty: 200 11RF Rx Instructions: As directed during ostomy appliance change and cleanging (DME) SenSura Flex Ostomy Pouch Misc See Rx Instructions .ROUTE .MEDSUPPLY Qty: 30 11RF Rx Instructions: Ostomy pouch #[id number] (DME) ostomy supplies-skin barrier 4 X 4 wafer See Rx Instructions .ROUTE .MEDSUPPLY Qty: 20 11RF Rx Instructions: Ostomy wafer #[id number] cyclobenzaprine 5 mg tablet 5 mg PO TID 30 Days Qty: 90 8RF testosterone 1 % (50 mg/5 gram) gel in packet 2 packet transdermal DAILY 30 Days Qty: 300 5RF Rx Instructions: 2 applications topical every morning to both arms oxycodone 15 mg tablet 15 mg PO Q4H MDD 5 pills PRN (Reason: pain (scale score 7-10)) 30 Days Qty: 150 0RF diphenoxylate-atropine 2.5-0.025 mg tablet 2 tab PO TID PRN0RF gabapentin 600 mg tablet 600 mg PO BEDTIME 0RF clonidine HCl 0.2 mg tablet 0.2 mg PO BID 0RF lorazepam 0.5 mg tablet 0.5 mg PO BID PRN0RF chlorzoxazone 500 mg tablet 500 mg PO QID PRN0RF metoprolol succinate 25 mg tablet extended release 24 hr 25 mg PO BEDTIME 0RF (DME) ostomy supplies Paste See Rx Instructions .ROUTE .MEDSUPPLY Qty: 60 3RF Rx Instructions: Apply ostomy paste as directed to ostomy area bupropion HCl 150 mg tablet extended release 24 hr 300 mg PO 0RF Humira(CF) Pen 40 mg/0.4 mL pen injector kit 40 mg subcut Q2W 0RF prednisone 1 mg tablet 1 mg PO BID 0RF Humira 40 mg/0.8 mL syringe kit See Rx Instructions subcut .COMPLEX 0RF Rx Instructions: inject one - 40 mg/0.8 mL syringe every 2 weeks subcut Narcan 4 mg/actuation spray,non-aerosol 4 mg intranasal Q2M Qty: 2 0RF Rx Instructions: spray 1 dose into ONE nostril; alternate nostrils w each dose until help arrives Referrals: Bucky Raymond MD [Physician] - 2 days Interventions: ED Discharge Assessment Last Done: 11/02/21 13:07 Discharge Date/Time: 11/02/21 13:09
== END 2021-11-02 13:09 | disposition home or self-care (01) ==
PROVIDERS: Emergency Provider Emergency Medicine; PCP Family Medicine
DX: Z76.0 Encounter for issue of repeat prescription (principal); G89.4 Chronic pain syndrome; Z85.51 Personal history of malignant neoplasm of bladder; Z93.2 Ileostomy status; Z79.891 Long term (current) use of opiate analgesic
CPT/HCPCS: 99282; 99283

== ENCOUNTER → 2021-11-13 13:58 | Outpatient (BNVA) | payer MEDICARE, MEDICAID, SELFPAY | PROVIDERS: PCP Family Medicine; Visit Provider Anesthesiology | DX: Z51.81 Encounter for therapeutic drug level monitoring (principal); F11.20 Opioid dependence, uncomplicated; M47.12 Other spondylosis with myelopathy, cervical region; C67.9 Malignant neoplasm of bladder, unspecified; G89.4 Chronic pain syndrome | CPT/HCPCS: 99212 ==

== ENCOUNTER 2021-11-21 13:33 | Outpatient (REF) | payer MEDICARE, MEDICAID, SELFPAY ==
--- NOTE | 2021-11-21 13:41 | MHC.AU.HFU ---
Hearing Instrument Follow-Up- Binaural Date of Visit: 11/21/21 Right Ear: Research Anthropologist: Henry Model: Evolv AI 1600 ITC-R Serial Number: [id number] Repair Warranty: 11/23/2024 Left Ear: Research Anthropologist: Henry Model: Evolv AI 1600 ITC-R Serial Number: [id number] Repair Warranty: 11/23/2024 Follow-Up Summary: Patient reports that, overall, he has preferred the ITCs more than the RICs. He finds that both styles have excellent sound quality and he hears equally well from either one. He feels the ITCs are much easier to insert and manipulate than the RICs. His concern about the ITCs is that they have popped out on a few occasions and landed on the floor. He reports this has luckily only happened at home so far on the carpeted floor, but he is worried about losing them in public or having them break on a hard floor. He initially said he decided to return the ITCs and keep the RICs for peace of mind, so he does not have to worry about them falling out. After seeing how much he preferred the ITCs otherwise, discussed sending the ITCs back to [facility] to modify them and add a canal lock. Patient was given the RICs back for now. The ITCs were sent to [facility] for remake. Recommendations: Patient will be contacted when materials have arrived. Diagnosis Code(s): Primary Diagnosis: H90.3 Bilateral Sensorineural Hearing Loss Signature: Provider: Layla Sky, [facility]
== END 2021-11-21 13:34 | disposition home or self-care (01) ==
LOC: HO.HAP 13:33
PROVIDERS: Visit Provider Family Medicine
DX: Z13.89 Encounter for screening for other disorder (principal)

== ENCOUNTER → 2021-12-02 10:30 | Outpatient (BNVA) | payer MEDICARE, MEDICAID, SELFPAY | PROVIDERS: Visit Provider Orthopaedic Surgery | DX: M19.011 Primary osteoarthritis, right shoulder (principal); M75.102 Unspecified rotator cuff tear or rupture of left shoulder, not specified as traumatic | CPT/HCPCS: 20610; 99212 ==

== ENCOUNTER 2021-12-04 10:17 | Outpatient (REF) | payer MEDICARE, MEDICAID, SELFPAY | END 2021-12-04 10:18 | disposition home or self-care (01) | LOC: HO.HAP 10:17 | PROVIDERS: Visit Provider Family Medicine | DX: Z13.89 Encounter for screening for other disorder (principal) ==

== ENCOUNTER 2021-12-17 13:52 | Outpatient (REF) | payer MEDICARE, MEDICAID, SELFPAY ==
[2021-12-17 14:16] LABS: MANUAL DIFF FLAG NO
[2021-12-17 14:27] LABS: Basophils Percent Auto 0.3 % (0-2); Eosinophils Absolute Auto 0.1 X10*3/uL (0.0-0.4); Eosinophils Percent Auto 1.1 % (0-4); Hematocrit 43.7 % (42.0-52.0); Hemoglobin 14.6 g/dl (14.0-18.0); Imm Gran Abs Auto 0.02 X10*3/uL (0.00-0.03); Imm Gran Pct Auto 0.3 % (0.0-0.4); Lymphocytes Absolute Auto 1.7 X10*3/uL (1.2-4.9); Lymphocytes Percent Auto 21.7 % (20-40); Mean Corpuscular HGB Conc 33.4 g/dl (31.0-36.0); Mean Corpuscular Hemoglobin 28.5 pg (27.0-33.0); Mean Corpuscular Volume 85.2 fL (80.0-98.0); Mean Platelet Volume 9.1 fL (9.4-12.4); Monocytes Absolute Auto 0.9 X10*3/uL (0.1-1.2); Neutrophils Absolute Auto 5.2 x10*3/uL (2.0-8.3); Neutrophils Percent Auto 65.6 % (45-73); Platelet Count 278 X10*3/uL (160-400); Red Blood Count 5.13 X10*6/uL (4.60-5.80); Red Cell Distribution Width 13.2 % (11.0-16.0); White Blood Count 7.9 X10*3/uL (4.8-10.8)
[2021-12-17 14:28] LABS: Hematocrit 43.6 % (42.0-52.0); Hemoglobin 14.6 g/dl (14.0-18.0); Mean Corpuscular HGB Conc 33.5 g/dl (31.0-36.0); Mean Corpuscular Hemoglobin 28.7 pg (27.0-33.0); Mean Corpuscular Volume 85.8 fL (80.0-98.0); Platelet Count 268 X10*3/uL (160-400); Red Blood Count 5.08 X10*6/uL (4.60-5.80); Red Cell Distribution Width 13.2 % (11.0-16.0); White Blood Count 7.8 X10*3/uL (4.8-10.8)
[2021-12-17 15:06] LABS: Alanine Aminotransferase 25 U/L (0-40); Albumin Level 4.2 g/dL (3.5-5.0); Alkaline Phosphatase 102 U/L (39-117); Anion Gap 12 (12-20); Aspartate Amino Transferase 25 U/L (5-37); Bilirubin Total 0.8 mg/dL (0.0-1.0); Blood Urea Nitrogen 24 mg/dL (9-16); Calcium 9.7 mg/dL (8.4-10.2); Carbon Dioxide 27 mmol/L (22-29); Chloride 104 mmol/L (96-108); Estimated Glomerular Filt Rate 35; Glucose Random 99 mg/dL (60-115); Potassium 5.1 mmol/L (3.3-5.1); Sodium 138 mmol/L (135-145); Total Protein 7.6 g/dL (6.5-8.0)
[2021-12-17 15:25] LABS: Prostate Specific Antigen 2.04 ng/mL (<0.05-4.0)
[2021-12-21 15:31] LABS: Testosterone, Total 1039 ng/dL (250-1100)
== END 2021-12-17 13:53 | disposition home or self-care (01) ==
LOC: HO.LAB 13:52
PROVIDERS: Absent Provider Family Medicine; PCP Family Medicine; Visit Provider Urology
DX: Z12.5 Encounter for screening for malignant neoplasm of prostate (principal); E29.1 Testicular hypofunction; K50.90 Crohn's disease, unspecified, without complications; I10 Essential (primary) hypertension; G62.9 Polyneuropathy, unspecified
CPT/HCPCS: 36415; 80053; 84153; 84403; 85025; 85027

== ENCOUNTER 2021-12-18 11:32 | Outpatient (REF) | payer MEDICARE, MEDICAID, SELFPAY | END 2021-12-18 11:33 | disposition home or self-care (01) | LOC: HO.HAP 11:32 | PROVIDERS: Visit Provider Family Medicine | DX: Z13.89 Encounter for screening for other disorder (principal) ==

== ENCOUNTER 2021-12-23 14:42 | Outpatient (REF) | payer MEDICARE, MEDICAID, SELFPAY ==
[2021-12-23 15:38] LABS: Appearance Urine CLOUDY; Color Urine DK YELLOW; Glucose Urine UA NEG (NEG); Leukocyte Esterase Urine NEG (NEG); Nitrite Urine NEG (NEG); PH 5.5 (5.0-8.0); Specific Gravity - Urine >= 1.030 (1.005-1.025); Urine Blood 3+ (NEG); Urine Ketones NEG (NEG); Urine Protein 1+ MG/DL (NEG-TRACE)
[2021-12-23 16:04] LABS: Amorphous Sediment Urine 2+ /LPF; Hyaline Casts Urine 0-2 /LPF; Mucus Urine 3+ /LPF; RBC Urine 50-75 /HPF (0); Renal Epithelial Cells Urine 2+ /LPF; Squamous Epithelial Cell Urine 1+ /LPF; WBC Urine 0 /HPF (0-4)
[2021-12-23 16:30] LABS: Blood Urea Nitrogen 30 mg/dL (9-16); Estimated Glomerular Filt Rate 32
== END 2021-12-23 14:43 | disposition home or self-care (01) ==
LOC: HO.LAB 14:42
PROVIDERS: Absent Provider Family Medicine; PCP Family Medicine; Visit Provider Urology
DX: I12.9 Hypertensive chronic kidney disease with stage 1 through stage 4 chronic kidney disease, or unspecified chronic kidney disease (principal); N18.30 Chronic kidney disease, stage 3 unspecified; C67.9 Malignant neoplasm of bladder, unspecified
CPT/HCPCS: 36415; 81001; 82565; 84520; 87086

== ENCOUNTER 2022-01-08 15:12 | Outpatient (REF) | payer MEDICARE, MEDICAID, SELFPAY ==
[2022-01-08 16:31] LABS: Urine Cytology See Pathology rpt
== END 2022-01-08 15:13 | disposition home or self-care (01) ==
LOC: HO.LAB 15:12
PROVIDERS: Visit Provider Urology
DX: C67.9 Malignant neoplasm of bladder, unspecified (principal); R31.0 Gross hematuria; E29.1 Testicular hypofunction
CPT/HCPCS: 52000; 88112; 99212

== ENCOUNTER → 2022-01-15 11:04 | Outpatient (BNVA) | payer MEDICARE, MEDICAID, SELFPAY | PROVIDERS: PCP Family Medicine; Visit Provider Anesthesiology | DX: Z79.891 Long term (current) use of opiate analgesic (principal) | CPT/HCPCS: 99211 ==

== ENCOUNTER → 2022-02-12 11:12 | Outpatient (BNVA) | payer MEDICARE, MEDICAID, SELFPAY | PROVIDERS: PCP Family Medicine; Visit Provider Anesthesiology | DX: G89.4 Chronic pain syndrome (principal); M47.12 Other spondylosis with myelopathy, cervical region; C67.9 Malignant neoplasm of bladder, unspecified; Z79.891 Long term (current) use of opiate analgesic | CPT/HCPCS: 99212 ==

== ENCOUNTER 2022-02-25 13:00 | Outpatient (AMB) | payer MEDICARE, MEDICAID, SELFPAY ==
--- NOTE | 2022-02-25 13:59 | A.OFFVIS_ITS ---
Intake Intake Visit Reasons: H&P (cysto fulguration 03/10) Intake Note: Patient is present for h&p Commercial Real Estate Attorney Required: No Accompanied by: Self / Same As Patient Allergies methotrexate [METHOTREXATE] Allergy (Severe, Verified 10/27/22 11:24) ACUTE PANCREATITIS ciprofloxacin [Cipro] Allergy (Unknown, Verified 10/27/22 11:24) itching infliximab [From REMICADE] Adverse Reaction (Severe, Verified 10/27/22 11:24) MALAISE,DIZZY,NAUSEA levofloxacin [From LEVAQUIN] Adverse Reaction (Severe, Verified 10/27/22 11:24) PAINS IN SIDES OF ABDOMEN thalidomide [THALIDOMIDE] Adverse Reaction (Severe, Verified 10/27/22 11:24) MALAISE DIZZY,NAUSEA From FLAGYL Adverse Reaction (Severe, Uncoded 09/29/22 10:59) MALAISE,DIZZY,NAUSEA SALICYLATES Adverse Reaction (Severe, Uncoded 09/29/22 10:59) MALAISE,DIZZY,NAUSEOUS HPI HPI Comments History of Present Illness Details Roney is a pleasant male. He is seen for following urologic conditions. 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, 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 Has followed up with [facility] [place] Underwent induction BCG Continue with surveillance cystoscopy [facility] Medical History Bladder cancer Cervical stenosis of spinal canal Chronic pain syndrome Crohn's disease Crohn's disease Degeneration, intervertebral disc, cervical Hypergranulation Ileostomy in place Ileostomy in place 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 Low back pain Peripheral neuropathy Spondylosis of cervical spine with myelopathy Surgical wound granuloma Surgical History History of appendectomy History of colostomy History of excision of mass (05/31/12) History of left hip replacement History of left knee replacement History of resection of stomach History of tonsillectomy and adenoidectomy History of total right hip arthroplasty (06/29/17) History of total right knee replacement Social History Alcohol intake: current Alcohol intake frequency: holidays/special occasions only Current occupation: right handed Review of Systems Const All systems reviewed & are unremarkable except as noted in HPI and below Reports no additional complaints Resp Reports no additional complaints GI Reports no additional complaints Reports as per HPI Musc Reports no additional complaints Physical Exam Telemedicine evaluation Appropriate responses Regular breathing rate and rhythm HEENT Head: Yes normal to inspection Ears: hearing grossly normal bilaterally Eyes General: appearance normal, both eyes and all related structures Neck Neck: Yes normal visual inspection Chest Chest palpation & inspection: normal inspection of the chest Resp Effort & Inspection: normal respiratory effort and able to speak in complete sentences Assessment & Plan Assessment & Plan (1) Hypogonadism in male: Code(s): E29.1 - Testicular hypofunction (2) Bladder cancer: Comment: 12/2019 superficial high-grade Code(s): C67.9 - Malignant neoplasm of bladder, unspecified Patient Instructions: Imaging studies, laboratory and physical exam results were discussed and reviewed in detail. No major barriers to patient understanding were identified. An opportunity to ask questions regarding the treatment plan was provided. All questions were answered. The patient expressed understanding and agreement with the above treatment plan. The patient is aware they should contact our office by phone for worsening of their current condition or the appearance of new urologic symptoms. Compliance is encouraged with any medications and followup testing that is ordered. It is a privilege to participate in the urologic care of your patient. If you have any questions or concerns regarding treatment for the above conditions, or other urologic issues, please do not hesitate to contact me. The office telephone contact is [phone]. This note is constructed using voice recognition software. While every effort has been made to ensure accuracy design draftsman errors may have been included. Yours sincerely, Dr Sloan Hendricks MD, [facility] - Urology Providers of Expert, Compassionate Care for the Genitourinary System Telehealth Telehealth Location of provider rendering services: practice address Location of patient: address on file Patient Identification confirmed using: Name, : Yes Telehealth method: voice only Patient verbally consented to treatment: Yes Patient verbally consented to billing insurance company: Yes Patient informed of any privacy concerns related to visit: Yes Coding Level of Care Code Tele Est Pt Level 3 (30479) Diagnoses Hypogonadism in male E29.1 Bladder cancer C67.9
== END 2022-02-25 14:15 ==
PROVIDERS: PCP Family Medicine; Visit Provider Urology
DX: E29.1 Testicular hypofunction (principal); C67.9 Malignant neoplasm of bladder, unspecified
CPT/HCPCS: 99442

== ENCOUNTER → 2022-02-25 13:00 | Outpatient (BNVA) | payer MEDICARE, MEDICAID, SELFPAY | PROVIDERS: PCP Family Medicine; Visit Provider Urology | DX: E29.1 Testicular hypofunction (principal); C67.9 Malignant neoplasm of bladder, unspecified ==

== ENCOUNTER 2022-03-07 13:39 | Outpatient (REF) | payer MEDICARE, MEDICAID, SELFPAY ==
[2022-03-07 15:35] LABS: Appearance Urine CLEAR; Color Urine YELLOW; Glucose Urine UA NEG (NEG); Leukocyte Esterase Urine TRACE (NEG); Nitrite Urine NEG (NEG); PH 5.5 (5.0-8.0); Specific Gravity - Urine >= 1.030 (1.005-1.025); UACC Culture Trigger NO; Urine Blood 2+ (NEG); Urine Ketones NEG (NEG); Urine Protein NEG (NEG-TRACE)
[2022-03-07 16:20] LABS: UACC CULT YES
== END 2022-03-07 13:40 | disposition home or self-care (01) ==
LOC: HO.LAB 13:39
PROVIDERS: Internal Medicine; PCP Family Medicine; Referring Provider Internal Medicine Gastroenterology; Visit Provider Family Medicine
DX: N39.0 Urinary tract infection, site not specified (principal)
CPT/HCPCS: 81001; 81003; 87086

== ENCOUNTER → 2022-03-12 11:09 | Outpatient (BNVA) | payer MEDICARE, MEDICAID, SELFPAY | PROVIDERS: PCP Family Medicine; Visit Provider Anesthesiology | DX: G89.4 Chronic pain syndrome (principal); M47.12 Other spondylosis with myelopathy, cervical region; C67.9 Malignant neoplasm of bladder, unspecified; Z79.891 Long term (current) use of opiate analgesic | CPT/HCPCS: 99212 ==

== ENCOUNTER 2022-03-25 14:22 | Outpatient (REF) | payer MEDICARE, MEDICAID, SELFPAY ==
[2022-03-25 16:55] LABS: Urine Cytology See Pathology rpt
== END 2022-03-25 14:23 | disposition home or self-care (01) ==
LOC: HO.LAB 14:22
PROVIDERS: Visit Provider Urology
DX: C67.9 Malignant neoplasm of bladder, unspecified (principal)
CPT/HCPCS: 88112; 99212

== ENCOUNTER → 2022-04-09 12:05 | Outpatient (BNVA) | payer MEDICARE, MEDICAID, SELFPAY | PROVIDERS: PCP Family Medicine; Visit Provider Anesthesiology | DX: Z79.891 Long term (current) use of opiate analgesic (principal) | CPT/HCPCS: 99211 ==

== ENCOUNTER → 2022-05-22 08:40 | Outpatient (BNVA) | payer MEDICARE, MEDICAID, SELFPAY | PROVIDERS: PCP Family Medicine; Visit Provider Anesthesiology | DX: G89.4 Chronic pain syndrome (principal); C67.9 Malignant neoplasm of bladder, unspecified; M47.12 Other spondylosis with myelopathy, cervical region; K50.90 Crohn's disease, unspecified, without complications; Z93.3 Colostomy status; Z79.891 Long term (current) use of opiate analgesic | CPT/HCPCS: Q3014 ==

== ENCOUNTER 2022-05-27 15:04 | Outpatient (REF) | payer MEDICARE, MEDICAID, SELFPAY | END 2022-05-27 15:05 | disposition home or self-care (01) | LOC: HO.HAP 15:04 | PROVIDERS: Visit Provider Family Medicine | DX: Z46.1 Encounter for fitting and adjustment of hearing aid (principal); H90.3 Sensorineural hearing loss, bilateral | CPT/HCPCS: V5267 ==

== ENCOUNTER → 2022-06-16 08:06 | Outpatient (BNVA) | payer MEDICARE, MEDICAID, SELFPAY | PROVIDERS: PCP Family Medicine; Visit Provider Anesthesiology | DX: Z51.81 Encounter for therapeutic drug level monitoring (principal); F11.20 Opioid dependence, uncomplicated; M47.12 Other spondylosis with myelopathy, cervical region; C67.9 Malignant neoplasm of bladder, unspecified; G89.4 Chronic pain syndrome | CPT/HCPCS: 99212 ==

== ENCOUNTER 2022-07-04 12:48 | Outpatient (REF) | payer MEDICARE, MEDICAID, SELFPAY ==
[2022-07-04 12:53] LABS: MANUAL DIFF FLAG NO
[2022-07-04 13:29] LABS: Basophils Absolute Auto 0.1 X10*3/uL (0.0-0.2); Basophils Percent Auto 0.5 % (0-2); Imm Gran Pct Auto 0.7 % (0.0-0.4); Red Cell Distribution Width 16.6 % (11.0-16.0)
[2022-07-04 13:36] LABS: Eosinophils Absolute Auto 0.4 X10*3/uL (0.0-0.4); Eosinophils Percent Auto 2.7 % (0-4); Hematocrit 34.3 % (42.0-52.0); Imm Gran Abs Auto 0.09 X10*3/uL (0.00-0.03); Lymphocytes Absolute Auto 2.4 X10*3/uL (1.2-4.9); Lymphocytes Percent Auto 17.7 % (20-40); Mean Corpuscular Hemoglobin 25.3 pg (27.0-33.0); Mean Corpuscular Volume 84.3 fL (80.0-98.0); Mean Platelet Volume 9.4 fL (9.4-12.4); Monocytes Absolute Auto 0.8 X10*3/uL (0.1-1.2); Monocytes Percent Auto 6.3 % (2-11); Neutrophils Absolute Auto 9.7 x10*3/uL (2.0-8.3); Neutrophils Percent Auto 72.1 % (45-73); Platelet Count 296 X10*3/uL (160-400); Red Blood Count 4.07 X10*6/uL (4.60-5.80); White Blood Count 13.4 X10*3/uL (4.8-10.8)
[2022-07-04 13:39] LABS: Hemoglobin 10.3 g/dl (14.0-18.0)
[2022-07-04 14:47] LABS: Alanine Aminotransferase 14 U/L (0-40); Albumin Level 4.1 g/dL (3.5-5.0); Alkaline Phosphatase 100 U/L (39-117); Anion Gap 11 (12-20); Aspartate Amino Transferase 14 U/L (5-37); Bilirubin Total 0.3 mg/dL (0.0-1.0); Blood Urea Nitrogen 24 mg/dL (9-16); Calcium 9.8 mg/dL (8.4-10.2); Carbon Dioxide 26 mmol/L (22-29); Chloride 104 mmol/L (96-108); Estimated Glomerular Filt Rate 34; Glucose Random 96 mg/dL (60-115); Potassium 5.4 mmol/L (3.3-5.1); Sodium 136 mmol/L (135-145)
== END 2022-07-04 12:49 | disposition home or self-care (01) ==
LOC: HO.LAB 12:48
PROVIDERS: PCP Family Medicine; Visit Provider Family Medicine
DX: R53.1 Weakness (principal); C67.9 Malignant neoplasm of bladder, unspecified; N18.30 Chronic kidney disease, stage 3 unspecified
CPT/HCPCS: 36415; 80053; 85025

== ENCOUNTER → 2022-07-17 10:24 | Outpatient (BNVA) | payer MEDICARE, MEDICAID, SELFPAY | PROVIDERS: PCP Family Medicine; Visit Provider Surgery | DX: R19.00 Intra-abdominal and pelvic swelling, mass and lump, unspecified site (principal); Z93.2 Ileostomy status | CPT/HCPCS: 99212 ==

== ENCOUNTER → 2022-07-21 09:58 | Outpatient (BNVA) | payer MEDICARE, MEDICAID, SELFPAY | PROVIDERS: PCP Family Medicine; Visit Provider Anesthesiology | DX: Z51.81 Encounter for therapeutic drug level monitoring (principal); F11.20 Opioid dependence, uncomplicated; M47.12 Other spondylosis with myelopathy, cervical region; C67.9 Malignant neoplasm of bladder, unspecified; G89.4 Chronic pain syndrome | CPT/HCPCS: 99212 ==

== ENCOUNTER → 2022-08-25 10:03 | Outpatient (BNVA) | payer MEDICARE, MEDICAID, SELFPAY | PROVIDERS: PCP Family Medicine; Visit Provider Anesthesiology | DX: Z79.891 Long term (current) use of opiate analgesic (principal); R53.83 Other fatigue; D64.9 Anemia, unspecified; C67.9 Malignant neoplasm of bladder, unspecified | CPT/HCPCS: 36415; 82565; 84520; 85025; 99211 ==

== ENCOUNTER 2022-08-25 10:49 | Outpatient (REF) | payer MEDICARE, MEDICAID, SELFPAY ==
[2022-08-25 11:21] LABS: MANUAL DIFF FLAG NO
[2022-08-25 11:54] LABS: Basophils Percent Auto 0.4 % (0-2); Eosinophils Absolute Auto 0.2 X10*3/uL (0.0-0.4); Eosinophils Percent Auto 2.6 % (0-4); Hematocrit 32.1 % (42.0-52.0); Hemoglobin 9.7 g/dl (14.0-18.0); Imm Gran Abs Auto 0.02 X10*3/uL (0.00-0.03); Imm Gran Pct Auto 0.3 % (0.0-0.4); Lymphocytes Absolute Auto 1.6 X10*3/uL (1.2-4.9); Lymphocytes Percent Auto 20.6 % (20-40); Mean Corpuscular HGB Conc 30.2 g/dl (31.0-36.0); Mean Corpuscular Hemoglobin 26.4 pg (27.0-33.0); Mean Corpuscular Volume 87.2 fL (80.0-98.0); Mean Platelet Volume 9.7 fL (9.4-12.4); Monocytes Absolute Auto 0.8 X10*3/uL (0.1-1.2); Neutrophils Percent Auto 65.1 % (45-73); Platelet Count 306 X10*3/uL (160-400); Red Blood Count 3.68 X10*6/uL (4.60-5.80); Red Cell Distribution Width 14.8 % (11.0-16.0); White Blood Count 7.6 X10*3/uL (4.8-10.8)
[2022-08-25 13:10] LABS: Blood Urea Nitrogen 20 mg/dL (9-16); Estimated Glomerular Filt Rate 39
== END 2022-08-25 10:50 | disposition home or self-care (01) ==
LOC: HO.10HDL 10:49
PROVIDERS: Absent Provider Urology; Visit Provider Family Medicine
DX: Z13.89 Encounter for screening for other disorder (principal)
CPT/HCPCS: 36415; 82565; 84520; 85025

== ENCOUNTER → 2022-09-29 10:53 | Outpatient (BNVA) | payer MEDICARE, MEDICAID, SELFPAY | PROVIDERS: PCP Family Medicine; Visit Provider Anesthesiology | DX: C67.9 Malignant neoplasm of bladder, unspecified (principal); C79.9 Secondary malignant neoplasm of unspecified site; K50.90 Crohn's disease, unspecified, without complications; G89.4 Chronic pain syndrome; M48.02 Spinal stenosis, cervical region; M47.12 Other spondylosis with myelopathy, cervical region; Z93.3 Colostomy status; Z79.891 Long term (current) use of opiate analgesic | CPT/HCPCS: 99212 ==

== ENCOUNTER → 2022-10-03 10:08 | Outpatient (BNVA) | payer MEDICARE, MEDICAID, SELFPAY | PROVIDERS: PCP Family Medicine; Visit Provider Orthopaedic Surgery | DX: M19.011 Primary osteoarthritis, right shoulder (principal); M19.012 Primary osteoarthritis, left shoulder; M75.42 Impingement syndrome of left shoulder; G89.4 Chronic pain syndrome; M47.12 Other spondylosis with myelopathy, cervical region; M50.00 Cervical disc disorder with myelopathy, unspecified cervical region; M48.02 Spinal stenosis, cervical region; C64.9 Malignant neoplasm of unspecified kidney, except renal pelvis; C79.11 Secondary malignant neoplasm of bladder; Z96.643 Presence of artificial hip joint, bilateral; Z96.653 Presence of artificial knee joint, bilateral; Z79.891 Long term (current) use of opiate analgesic | CPT/HCPCS: 20610; 99212; J1100 ==

== ENCOUNTER 2022-10-22 12:42 | Outpatient (REF) | payer MEDICARE, MEDICAID, SELFPAY ==
[2022-10-22 13:58] LABS: Basophils Percent Auto 0.5 % (0-2); Eosinophils Absolute Auto 0.1 X10*3/uL (0.0-0.4); Eosinophils Percent Auto 1.8 % (0-4); Hematocrit 26.2 % (42.0-52.0); Hemoglobin 7.6 g/dl (14.0-18.0); Imm Gran Abs Auto 0.03 X10*3/uL (0.00-0.03); Imm Gran Pct Auto 0.4 % (0.0-0.4); Lymphocytes Absolute Auto 1.1 X10*3/uL (1.2-4.9); MANUAL DIFF FLAG SCAN; Mean Corpuscular Hemoglobin 23.9 pg (27.0-33.0); Mean Corpuscular Volume 82.4 fL (80.0-98.0); Monocytes Absolute Auto 0.8 X10*3/uL (0.1-1.2); Monocytes Percent Auto 10.1 % (2-11); Neutrophils Absolute Auto 5.8 x10*3/uL (2.0-8.3); Neutrophils Percent Auto 73.2 % (45-73); PLT CLUMP 1; Red Blood Count 3.18 X10*6/uL (4.60-5.80); Red Cell Distribution Width 15.2 % (11.0-16.0); SCAN SMEAR FLAG 1
[2022-10-22 14:23] LABS: Platelet Count 402 X10*3/uL (160-400); SLIDE REVIEW VERIFIED; White Blood Count 7.9 X10*3/uL (4.8-10.8)
[2022-10-22 15:51] LABS: Alanine Aminotransferase 10 U/L (0-40); Albumin Level 3.9 g/dL (3.5-5.0); Alkaline Phosphatase 111 U/L (39-117); Anion Gap 14 (12-20); Aspartate Amino Transferase 16 U/L (5-37); Bilirubin Total 0.3 mg/dL (0.0-1.0); Blood Urea Nitrogen 20 mg/dL (9-16); Calcium 9.2 mg/dL (8.4-10.2); Carbon Dioxide 25 mmol/L (22-29); Chloride 105 mmol/L (96-108); Estimated Glomerular Filt Rate 31; Glucose Random 98 mg/dL (60-115); Iron 26 mcg/dL (45-160); Percent Iron Saturation 8 % (15-50); Potassium 6.3 mmol/L (3.3-5.1); Sodium 138 mmol/L (135-145); Total Iron Binding Capacity 323 mcg/dL (228-428); Total Protein 7.2 g/dL (6.5-8.0); Unsaturated Iron Binding 297 ug/dL
== END 2022-10-22 12:43 | disposition home or self-care (01) ==
LOC: HO.10HDL 12:42
PROVIDERS: Internal Medicine; Visit Provider Family Medicine
DX: I10 Essential (primary) hypertension (principal); D64.9 Anemia, unspecified; R53.1 Weakness
CPT/HCPCS: 36415; 80053; 83540; 85025

== ENCOUNTER 2022-10-24 12:46 | Outpatient (REF) | payer MEDICARE, MEDICAID, SELFPAY ==
--- NOTE | ~2022-10-24 | XR_ITS ---
EXAMINATION: XR chest 2V CLINICAL INFORMATION: Reason for Exam right pleural effusion COMPARISON: 10/27/2014 TECHNIQUE: 2 views of the chest FINDINGS: Clear lungs. No pneumothorax or pleural effusion. Normal cardiomediastinal silhouette. XR/XR chest 2V Impression: No pleural effusion.
[2022-10-24 14:27] LABS: Anion Gap 14 (12-20); Carbon Dioxide 25 mmol/L (22-29); Chloride 105 mmol/L (96-108); Potassium 5.5 mmol/L (3.3-5.1); Sodium 138 mmol/L (135-145)
== END 2022-10-24 12:47 | disposition home or self-care (01) ==
LOC: HO.XRAY 12:46
PROVIDERS: PCP Family Medicine; Visit Provider Family Medicine
DX: J90 Pleural effusion, not elsewhere classified (principal)
CPT/HCPCS: 36415; 71046; 80051

== ENCOUNTER → 2022-10-27 11:12 | Outpatient (BNVA) | payer MEDICARE, MEDICAID, SELFPAY | PROVIDERS: PCP Family Medicine; Visit Provider Anesthesiology | DX: Z51.81 Encounter for therapeutic drug level monitoring (principal); F11.20 Opioid dependence, uncomplicated; M47.12 Other spondylosis with myelopathy, cervical region; C67.9 Malignant neoplasm of bladder, unspecified; G89.4 Chronic pain syndrome | CPT/HCPCS: 99212 ==

== ENCOUNTER 2022-10-29 13:55 | Outpatient (REF) | payer MEDICARE, MEDICAID, SELFPAY ==
[2022-10-29 14:15] LABS: MANUAL DIFF FLAG NO
[2022-10-29 15:23] LABS: Basophils Absolute Auto 0.1 X10*3/uL (0.0-0.2); Basophils Percent Auto 0.7 % (0-2); Eosinophils Absolute Auto 0.2 X10*3/uL (0.0-0.4); Eosinophils Percent Auto 2.6 % (0-4); Hematocrit 26.4 % (42.0-52.0); Hemoglobin 7.5 g/dl (14.0-18.0); Imm Gran Abs Auto 0.03 X10*3/uL (0.00-0.03); Imm Gran Pct Auto 0.4 % (0.0-0.4); Lymphocytes Absolute Auto 1.1 X10*3/uL (1.2-4.9); Lymphocytes Percent Auto 14.7 % (20-40); Mean Corpuscular HGB Conc 28.4 g/dl (31.0-36.0); Mean Corpuscular Hemoglobin 23.7 pg (27.0-33.0); Mean Corpuscular Volume 83.3 fL (80.0-98.0); Mean Platelet Volume 10.2 fL (9.4-12.4); Monocytes Absolute Auto 0.8 X10*3/uL (0.1-1.2); Monocytes Percent Auto 10.6 % (2-11); Neutrophils Absolute Auto 5.2 x10*3/uL (2.0-8.3); Platelet Count 342 X10*3/uL (160-400); Red Blood Count 3.17 X10*6/uL (4.60-5.80); White Blood Count 7.3 X10*3/uL (4.8-10.8)
[2022-10-29 15:53] LABS: Anion Gap 12 (12-20); Blood Urea Nitrogen 18 mg/dL (9-16); Carbon Dioxide 25 mmol/L (22-29); Chloride 109 mmol/L (96-108); Estimated Glomerular Filt Rate 35; Iron 20 mcg/dL (45-160); Percent Iron Saturation 6 % (15-50); Potassium 5.4 mmol/L (3.3-5.1); Sodium 141 mmol/L (135-145); Total Iron Binding Capacity 310 mcg/dL (228-428); Unsaturated Iron Binding 290 ug/dL
== END 2022-10-29 13:56 | disposition home or self-care (01) ==
LOC: HO.LAB 13:55
PROVIDERS: PCP Family Medicine; Visit Provider Family Medicine
DX: N18.5 Chronic kidney disease, stage 5 (principal); D64.9 Anemia, unspecified
CPT/HCPCS: 36415; 80051; 82565; 83540; 84520; 85025

== ENCOUNTER 2022-11-06 10:48 | Outpatient (REF) | payer MEDICARE, MEDICAID, SELFPAY ==
[2022-11-06 11:03] LABS: MANUAL DIFF FLAG NO
[2022-11-06 12:25] LABS: Basophils Percent Auto 0.3 % (0-2); Eosinophils Absolute Auto 0.2 X10*3/uL (0.0-0.4); Eosinophils Percent Auto 3.1 % (0-4); Hematocrit 27.8 % (42.0-52.0); Hemoglobin 7.7 g/dl (14.0-18.0); Imm Gran Abs Auto 0.03 X10*3/uL (0.00-0.03); Imm Gran Pct Auto 0.5 % (0.0-0.4); Lymphocytes Absolute Auto 0.9 X10*3/uL (1.2-4.9); Lymphocytes Percent Auto 14.2 % (20-40); Mean Corpuscular HGB Conc 27.7 g/dl (31.0-36.0); Mean Platelet Volume 9.7 fL (9.4-12.4); Monocytes Absolute Auto 0.7 X10*3/uL (0.1-1.2); Monocytes Percent Auto 10.2 % (2-11); Neutrophils Absolute Auto 4.7 x10*3/uL (2.0-8.3); Neutrophils Percent Auto 71.7 % (45-73); Platelet Count 331 X10*3/uL (160-400); Red Blood Count 3.35 X10*6/uL (4.60-5.80); Red Cell Distribution Width 17.2 % (11.0-16.0); White Blood Count 6.5 X10*3/uL (4.8-10.8)
[2022-11-06 12:57] LABS: Iron 63 mcg/dL (45-160); Percent Iron Saturation 23 % (15-50); Total Iron Binding Capacity 279 mcg/dL (228-428); Unsaturated Iron Binding 216 ug/dL
== END 2022-11-06 10:49 | disposition home or self-care (01) ==
LOC: HO.LAB 10:48
PROVIDERS: PCP Family Medicine; Visit Provider Family Medicine
DX: D50.9 Iron deficiency anemia, unspecified (principal)
CPT/HCPCS: 36415; 83540; 85025

== ENCOUNTER 2022-11-11 06:57 | Outpatient (REF) | payer MEDICARE, MEDICAID, SELFPAY | END 2022-11-11 06:58 | disposition home or self-care (01) | LOC: HO.MDS 06:57 | PROVIDERS: PCP Family Medicine; Visit Provider Family Medicine | DX: K50.90 Crohn's disease, unspecified, without complications (principal); N18.4 Chronic kidney disease, stage 4 (severe); D64.9 Anemia, unspecified; C67.9 Malignant neoplasm of bladder, unspecified | CPT/HCPCS: 36430; 86850; 86900; 86901; 86923; P9016 ==

== ENCOUNTER → 2022-12-08 09:33 | Outpatient (BNVA) | payer MEDICARE, MEDICAID, SELFPAY | PROVIDERS: PCP Family Medicine; Visit Provider Orthopaedic Surgery | DX: M19.011 Primary osteoarthritis, right shoulder (principal) | CPT/HCPCS: 20610; 99212; J1100 ==

== ENCOUNTER 2023-02-20 12:58 | Outpatient (AMB) | payer MEDICARE, MEDICAID, SELFPAY ==
--- NOTE | 2023-02-20 13:08 | MHC.OFFVIS ---
Intake Vital Signs 02/20/23 13:09 Height 5 ft 11 in Weight 186 lb BMI 25.9 Intake Visit Reasons: OV-B/L Shoulder OA - last injection 12/08/22 Intake Note: Landon is a 72 year old right hand dominant male who presents today for a follow up of his right shoulder pain. Last Injection done 12/08/22 states provided good relief and would like to repeat injection. Allergies methotrexate [METHOTREXATE] Allergy (Severe, Verified 02/20/23 13:09) ACUTE PANCREATITIS ciprofloxacin [Cipro] Allergy (Unknown, Verified 02/20/23 13:09) itching infliximab [From REMICADE] Adverse Reaction (Severe, Verified 02/20/23 13:09) MALAISE,DIZZY,NAUSEA levofloxacin [From LEVAQUIN] Adverse Reaction (Severe, Verified 02/20/23 13:09) PAINS IN SIDES OF ABDOMEN thalidomide [THALIDOMIDE] Adverse Reaction (Severe, Verified 02/20/23 13:09) MALAISE DIZZY,NAUSEA From FLAGYL Adverse Reaction (Severe, Uncoded 02/20/23 13:09) MALAISE,DIZZY,NAUSEA SALICYLATES Adverse Reaction (Severe, Uncoded 02/20/23 13:09) MALAISE,DIZZY,NAUSEOUS HPI OV-B/L Shoulder OA - last injection 12/08/22 HPI Details 73-year-old right hand dominant male who returns to the office today for a follow-up of right shoulder pain. He had his last injection on 12/08/22 which provided him relief for about 2 months. He is interested in repeating the injection. 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 Low back pain Peripheral neuropathy Spondylosis of cervical spine with myelopathy Surgical wound granuloma Surgical History History of appendectomy History of colostomy History of excision of mass (05/31/12) History of left hip replacement History of left knee replacement History of resection of stomach History of tonsillectomy and adenoidectomy History of total right hip arthroplasty (06/29/17) History of total right knee replacement Social History Alcohol intake: current Alcohol intake frequency: holidays/special occasions only Current occupation: right handed Review of Systems Const All systems reviewed & are unremarkable except as noted in HPI and below Physical Exam Vital Signs: BMI result Body Mass Index 25.9 Const General: no acute distress and alert Orientation/consciousness: patient oriented x3 Neuro General: patient oriented x3 Extrem Other: Right Shoulder: TTP over bicipital groove Mildly + Holt & Neer, but not impressive Psych Appearance: grossly normal Affect: normal affect Attitude: cooperative Office Procedures Joint Injection/Drain Joint Injection/Drain Primary Site: right shoulder (bicipital groove) Approach Used: anterior Coding - Large joint Procedure code (CPT) selection complete Results Reviewed Results Reviewed: 02/20/23 13:02 BUPivacaine MPF 0.25 % [Sensorcaine-MPF 0.25% 10 ML] 10 ml .ROUTE .STK-MED ONE Lidocaine HCl 2 % MPF [Xylocaine 2 % MPF] 5 ml .ROUTE .STK-MED ONE dexAMETHasone sod phosphate [Decadron] 4 mg .ROUTE .STK-MED ONE Assessment & Plan Assessment & Plan (1) Primary osteoarthritis, right shoulder: Code(s): M19.011 - Primary osteoarthritis, right shoulder Plan We discussed options today which include steroid injection. They did consent to move forward with the right shoulder injection, which was tolerated well. I recommended rest, ice and elevation and OTC anti-inflammatories PRN for discomfort. If symptoms persist or worsens over the next 6-8 weeks, patient will contact the office, otherwise follow-up as needed. Patient Instructions: Scribed for Frankie Mejia PA-C, by Isael Nazario director of graduate medical education, on 02/20/2023 at 1:00 PM EST. I, Frankie Mejia PA-C, have personally reviewed and agree with the information entered by the scribe. Coding Level of Care Code Est Pt Level 3 (71625) Diagnoses Primary osteoarthritis, right shoulder M19.011 CPT Codes Coding - Large joint: - Large joint ([id number])
[2023-02-20 13:09] VITALS: BMI 25.9
== END 2023-02-20 13:59 | disposition home or self-care (01) ==
PROVIDERS: Visit Provider Orthopaedic Surgery
DX: M19.011 Primary osteoarthritis, right shoulder (principal)
CPT/HCPCS: 20610; 99213

== ENCOUNTER → 2023-02-20 12:58 | Outpatient (BNVA) | payer MEDICARE, MEDICAID, SELFPAY | PROVIDERS: Visit Provider Orthopaedic Surgery | DX: M19.011 Primary osteoarthritis, right shoulder (principal) | CPT/HCPCS: 20610; 99212; J1100 ==

== ENCOUNTER 2023-03-05 17:16 | Outpatient (REF) | payer MEDICARE, MEDICAID, SELFPAY ==
[2023-03-05 17:25] LABS: MANUAL DIFF FLAG NO
[2023-03-05 18:33] LABS: Basophils Percent Auto 0.3 % (0-2); Eosinophils Percent Auto 0.3 % (0-4); Hematocrit 23.6 % (42.0-52.0); Hemoglobin 7.2 g/dl (14.0-18.0); Imm Gran Abs Auto 0.08 X10*3/uL (0.00-0.03); Imm Gran Pct Auto 0.7 % (0.0-0.4); Lymphocytes Percent Auto 8.6 % (20-40); Mean Corpuscular HGB Conc 30.5 g/dl (31.0-36.0); Mean Corpuscular Hemoglobin 25.5 pg (27.0-33.0); Mean Corpuscular Volume 83.7 fL (80.0-98.0); Mean Platelet Volume 8.5 fL (9.4-12.4); Monocytes Percent Auto 8.2 % (2-11); Neutrophils Absolute Auto 9.7 x10*3/uL (2.0-8.3); Neutrophils Percent Auto 81.9 % (45-73); Platelet Count 494 X10*3/uL (160-400); Red Blood Count 2.82 X10*6/uL (4.60-5.80); Red Cell Distribution Width 16.9 % (11.0-16.0); White Blood Count 11.8 X10*3/uL (4.8-10.8)
[2023-03-05 18:53] LABS: Iron 18 mcg/dL (45-160); Percent Iron Saturation 10 % (15-50); Total Iron Binding Capacity 178 mcg/dL (228-428); Unsaturated Iron Binding 160 ug/dL
== END 2023-03-05 17:17 | disposition home or self-care (01) ==
LOC: HO.LAB 17:16
PROVIDERS: PCP Family Medicine; Visit Provider Family Medicine
DX: D64.9 Anemia, unspecified (principal)
CPT/HCPCS: 36415; 83540; 85025

== ENCOUNTER 2023-04-02 07:19 | Outpatient (REF) | payer MEDICARE, MEDICAID, SELFPAY | END 2023-04-02 07:20 | disposition home or self-care (01) | LOC: HO.HOSX 07:19 | PROVIDERS: Visit Provider Physician Assistant | DX: Z13.89 Encounter for screening for other disorder (principal) ==